=== PATIENT | male | born 1955 | race Hispanic/Latino ===

== ENCOUNTER → 2018-09-22 | Outpatient (CLI) | payer OTHER | END | disposition home or self-care (01) | LOC: OIH 11:03 | PROVIDERS: ATTEND Internal Medicine | DX: M19.072 Primary osteoarthritis, left ankle and foot (principal); M19.071 Primary osteoarthritis, right ankle and foot; M77.32 Calcaneal spur, left foot; M77.31 Calcaneal spur, right foot; M19.042 Primary osteoarthritis, left hand; M19.041 Primary osteoarthritis, right hand; M06.4 Inflammatory polyarthropathy | CPT/HCPCS: 73130; 73630 ==

== ENCOUNTER → 2018-11-09 | Outpatient (CLI) | payer OTHER | END | disposition home or self-care (01) | LOC: OIH 15:36 | PROVIDERS: ATTEND Family Medicine | DX: M48.07 Spinal stenosis, lumbosacral region (principal); M89.8X5 Other specified disorders of bone, thigh; M25.551 Pain in right hip | CPT/HCPCS: 72100; 73502; 73552 ==